=== PATIENT | male | born 1965 | race Caucasian/White ===

== ENCOUNTER 2021-03-23 14:46 | Inpatient (IN) ==
[2021-03-23] MEDS ORDERED: Acetaminophen 325 MG TABLET PO PRN (19:57)
[2021-03-23] MEDS ORDERED: Naloxone 0.4 MG/ML INJ IVP PRN (19:57)
[2021-03-23] MEDS ORDERED: Ondansetron 4 MG/2 ML VIAL IVP PRN (19:57)
[2021-03-23] MEDS ORDERED: *HR* HYDROcodone/Acet 5/325 mg TABLET PO PRN (19:57)
[2021-03-23] MEDS ORDERED: *HR* Promethazine 25 MG/ML VIAL IM PRN (19:57)
[2021-03-23] MEDS ORDERED: Melatonin 3 MG TABLET PO PRN (19:57)
[2021-03-23] MEDS ORDERED: Dextrose Gel 15 GM/37.5 ML TUBE PO PRN ×2 (20:00)
[2021-03-23] MEDS ORDERED: D5% in Water 1,000 ML IVC PRN (20:00)
[2021-03-23] MEDS ORDERED: *HR* Dextrose 50 % in Water (Syg) 50 ML SYRINGE IVP PRN (20:00)
[2021-03-23] MEDS ORDERED: Isovue-370 500 ML BOTTLE IVP ONE (20:39)
[2021-03-23] MEDS: Insulin LISPRO 300 UNITS/3 ML VIAL SUBQ SCH (23:06)
[2021-03-23] MEDS: *HR* OxyCODONE Immed Rel 5 MG TABLET PO PRN (23:29)
[2021-03-24] MEDS: Morphine Sulfate ER (12 HR) 60 MG TABLET.ER PO SCH ×4 (00:54→23:40)
[2021-03-24] MEDS: *HR* Labetalol 20 MG/4 ML SYRINGE IVP PRN ×2 (00:54→04:37)
[2021-03-24 02:47] LABS: Basophils % 0.1 %; Hematocrit 40.4 % (37.5-50.1); Hemoglobin 13.1 g/dL (12.9-16.9); Immature Granulocytes % 0.6 % (0-4); Lymphocytes % 14.1 %; Mean Corpuscular HGB Conc 32.4 g/dL (31.6-35.5); Mean Corpuscular Hemoglobin 26.9 pg (28.0-33.3); Mean Platelet Volume 11.2 fL (9.4-12.4); Monocytes # 0.5 K/mcL (0.0-1.3); Monocytes % 7.6 %; Neutrophils # 5.3 K/mcL (1.6-8.9); Platelet Count 184 K/mcL (140-400); Red Blood Count 4.87 M/mcL (4.19-5.50); Segmented Neutrophils % 77.6 %; White Blood Count 6.9 K/mcL (4.3-11.1)
[2021-03-24 02:56] LABS: INR 1.2; Prothrombin Time 13.9 Seconds (9.4-12.1)
[2021-03-24 02:57] LABS: Alanine Aminotransferase 17 Units/L (7-52); Albumin 3.8 g/dL (3.5-5.7); Albumin/Globulin Ratio 1.2 (1.1-2.2); Alkaline Phosphatase 62 Units/L (34-104); Aspartate Amino Transferase 14 Units/L (13-39); BUN/Creatinine Ratio 17 (6-26); Bilirubin,Total 0.5 mg/dL (0.3-1.0); Blood Urea Nitrogen 10 mg/dL (6-20); Calcium 8.4 mg/dL (8.6-10.3); Carbon Dioxide 15 mEq/L (23-29); Chloride 102 mEq/L (98-107); Globulin 3.1 g/dL (2.4-3.5); Glucose 228 mg/dL (70-105); Magnesium 1.7 mg/dL (1.6-2.6); Osmolality,Calculated 282 (280-300); Potassium 3.7 mEq/L (3.5-5.1); Sodium 133 mEq/L (136-145); Total Protein 6.9 g/dL (6.4-8.9); eGFR For African Americans > 60 (> 60); eGFR For Non-African Americans > 60 (> 60)
[2021-03-24] MEDS ORDERED: Remdesivir 200 MG in 0.9 % Sodium Chloride 100 ML IVPB ONE (03:00)
[2021-03-24 03:01] LABS: Albumin 3.7 g/dL (3.5-5.7); Albumin/Globulin Ratio 1.1 (1.1-2.2); Bilirubin,Direct 0.2 mg/dL (0.0-0.2); Bilirubin,Indirect 0.3 mg/dL (0.0-1.0); Bilirubin,Total 0.5 mg/dL (0.3-1.0); C-Reactive Protein 78 mg/L (Less than 10); Globulin 3.4 g/dL (2.4-3.5); Lactate Dehydrogenase 439 Units/L (140-271); Total Protein 7.1 g/dL (6.4-8.9)
[2021-03-24] MEDS: *HR* Enoxaparin 40 MG/0.4 ML SYRINGE SQ SCH (04:38)
[2021-03-24] MEDS: Furosemide 20 MG TABLET PO SCH (07:58)
[2021-03-24] MEDS: Dexamethasone Sodium Phos/PF 10 MG/ML VIAL IVP SCH (07:58)
[2021-03-24] MEDS: lisinopriL 20 MG TABLET PO SCH (07:58)
[2021-03-24] MEDS: Insulin LISPRO 300 UNITS/3 ML VIAL SUBQ SCH ×4 (07:58→20:40)
[2021-03-24] MEDS: methocarbamoL 500 MG TABLET PO SCH ×3 (07:58→20:58)
[2021-03-24] MEDS: carvediloL 6.25 MG TABLET PO SCH ×2 (10:30→18:06)
[2021-03-24] MEDS: *HR* OxyCODONE Immed Rel 5 MG TABLET PO PRN ×2 (11:57→18:06)
[2021-03-24 18:06] LABS: Ferritin 560 ng/mL (20-250)
[2021-03-25] MEDS: Remdesivir 100 MG in 0.9 % Sodium Chloride 100 ML IVPB SCH (01:29)
[2021-03-25 02:23] LABS: Hematocrit 36.9 % (37.5-50.1); Hemoglobin 12.5 g/dL (12.9-16.9); Mean Corpuscular HGB Conc 33.9 g/dL (31.6-35.5); Mean Corpuscular Hemoglobin 27.9 pg (28.0-33.3); Mean Corpuscular Volume 82.4 fL (83.0-100.0); Platelet Count 222 K/mcL (140-400); Red Blood Count 4.48 M/mcL (4.19-5.50); Red Cell Distribution Width 13.2 % (11.5-14.5); White Blood Count 7.8 K/mcL (4.3-11.1)
[2021-03-25 02:33] LABS: BUN/Creatinine Ratio 25 (6-26); Blood Urea Nitrogen 15 mg/dL (6-20); Calcium 8.3 mg/dL (8.6-10.3); Carbon Dioxide 22 mEq/L (23-29); Chloride 102 mEq/L (98-107); Glucose 133 mg/dL (70-105); Osmolality,Calculated 281 (280-300); Potassium 3.5 mEq/L (3.5-5.1); Sodium 134 mEq/L (136-145); eGFR For African Americans > 60 (> 60); eGFR For Non-African Americans > 60 (> 60)
[2021-03-25 02:35] LABS: Albumin 3.6 g/dL (3.5-5.7); Albumin/Globulin Ratio 1.1 (1.1-2.2); Bilirubin,Direct 0.1 mg/dL (0.0-0.2); Bilirubin,Indirect 0.4 mg/dL (0.0-1.0); Bilirubin,Total 0.5 mg/dL (0.3-1.0); Globulin 3.3 g/dL (2.4-3.5); Total Protein 6.9 g/dL (6.4-8.9)
[2021-03-25] MEDS: *HR* Enoxaparin 40 MG/0.4 ML SYRINGE SQ SCH (05:27)
[2021-03-25] MEDS: Insulin LISPRO 300 UNITS/3 ML VIAL SUBQ SCH ×4 (07:41→20:44)
[2021-03-25] MEDS: Dexamethasone Sodium Phos/PF 10 MG/ML VIAL IVP SCH (07:45)
[2021-03-25] MEDS: Morphine Sulfate ER (12 HR) 60 MG TABLET.ER PO SCH ×2 (07:45→16:21)
[2021-03-25] MEDS: carvediloL 6.25 MG TABLET PO SCH ×2 (07:45→16:21)
[2021-03-25] MEDS: lisinopriL 20 MG TABLET PO SCH (07:45)
[2021-03-25] MEDS: Furosemide 20 MG TABLET PO SCH (07:45)
[2021-03-25] MEDS: methocarbamoL 500 MG TABLET PO SCH ×3 (07:45→20:39)
[2021-03-25] MEDS: amLODIPine 5 MG TABLET PO SCH (08:27)
[2021-03-26] MEDS: Morphine Sulfate ER (12 HR) 60 MG TABLET.ER PO SCH ×3 (01:22→17:10)
[2021-03-26] MEDS: Remdesivir 100 MG in 0.9 % Sodium Chloride 100 ML IVPB SCH (01:23)
[2021-03-26 02:48] LABS: Hematocrit 38.7 % (37.5-50.1); Hemoglobin 12.5 g/dL (12.9-16.9); Mean Corpuscular HGB Conc 32.3 g/dL (31.6-35.5); Mean Corpuscular Hemoglobin 26.6 pg (28.0-33.3); Mean Corpuscular Volume 82.3 fL (83.0-100.0); Mean Platelet Volume 11.2 fL (9.4-12.4); Platelet Count 262 K/mcL (140-400); Red Cell Distribution Width 13.2 % (11.5-14.5)
[2021-03-26 03:14] LABS: BUN/Creatinine Ratio 35 (6-26); Blood Urea Nitrogen 21 mg/dL (6-20); Calcium 8.5 mg/dL (8.6-10.3); Carbon Dioxide 25 mEq/L (23-29); Chloride 102 mEq/L (98-107); Glucose 198 mg/dL (70-105); Osmolality,Calculated 289 (280-300); Potassium 3.6 mEq/L (3.5-5.1); Sodium 135 mEq/L (136-145); eGFR For African Americans > 60 (> 60); eGFR For Non-African Americans > 60 (> 60)
[2021-03-26 03:16] LABS: Albumin 3.4 g/dL (3.5-5.7); Bilirubin,Direct 0.1 mg/dL (0.0-0.2); Bilirubin,Indirect 0.4 mg/dL (0.0-1.0); Bilirubin,Total 0.5 mg/dL (0.3-1.0); Globulin 3.3 g/dL (2.4-3.5); Total Protein 6.7 g/dL (6.4-8.9)
[2021-03-26] MEDS: *HR* Enoxaparin 40 MG/0.4 ML SYRINGE SQ SCH (05:08)
[2021-03-26] MEDS: Insulin LISPRO 300 UNITS/3 ML VIAL SUBQ SCH ×4 (07:48→20:48)
[2021-03-26] MEDS: methocarbamoL 500 MG TABLET PO SCH ×3 (08:03→20:56)
[2021-03-26] MEDS: Furosemide 20 MG TABLET PO SCH (08:04)
[2021-03-26] MEDS: carvediloL 6.25 MG TABLET PO SCH ×2 (08:04→17:10)
[2021-03-26] MEDS: amLODIPine 5 MG TABLET PO SCH (08:04)
[2021-03-26] MEDS: lisinopriL 20 MG TABLET PO SCH (08:04)
[2021-03-26] MEDS: Dexamethasone Sodium Phos/PF 10 MG/ML VIAL IVP SCH (09:33)
[2021-03-27] MEDS: Morphine Sulfate ER (12 HR) 60 MG TABLET.ER PO SCH ×3 (00:20→16:42)
[2021-03-27] MEDS: Remdesivir 100 MG in 0.9 % Sodium Chloride 100 ML IVPB SCH (01:40)
[2021-03-27 03:41] LABS: Hematocrit 37.7 % (37.5-50.1); Hemoglobin 12.5 g/dL (12.9-16.9); Mean Corpuscular HGB Conc 33.2 g/dL (31.6-35.5); Mean Corpuscular Hemoglobin 27.5 pg (28.0-33.3); Mean Corpuscular Volume 82.9 fL (83.0-100.0); Mean Platelet Volume 11.3 fL (9.4-12.4); Platelet Count 287 K/mcL (140-400); Red Blood Count 4.55 M/mcL (4.19-5.50); Red Cell Distribution Width 13.3 % (11.5-14.5)
[2021-03-27 03:49] LABS: Albumin 3.2 g/dL (3.5-5.7); Albumin/Globulin Ratio 0.9 (1.1-2.2); Bilirubin,Direct 0.1 mg/dL (0.0-0.2); Bilirubin,Indirect 0.5 mg/dL (0.0-1.0); Bilirubin,Total 0.6 mg/dL (0.3-1.0); Globulin 3.5 g/dL (2.4-3.5); Total Protein 6.7 g/dL (6.4-8.9)
[2021-03-27 03:50] LABS: BUN/Creatinine Ratio 35 (6-26); Blood Urea Nitrogen 22 mg/dL (6-20); C-Reactive Protein 142 mg/L (Less than 10); Calcium 8.3 mg/dL (8.6-10.3); Carbon Dioxide 22 mEq/L (23-29); Chloride 103 mEq/L (98-107); Glucose 195 mg/dL (70-105); Lactate Dehydrogenase 433 Units/L (140-271); Osmolality,Calculated 291 (280-300); Potassium 3.5 mEq/L (3.5-5.1); Sodium 136 mEq/L (136-145); eGFR For African Americans > 60 (> 60); eGFR For Non-African Americans > 60 (> 60)
[2021-03-27 04:00] LABS: White Blood Count 14.4 K/mcL (4.3-11.1)
[2021-03-27 04:08] LABS: Ferritin 577 ng/mL (20-250)
[2021-03-27] MEDS: *HR* Enoxaparin 40 MG/0.4 ML SYRINGE SQ SCH (05:39)
[2021-03-27] MEDS: carvediloL 6.25 MG TABLET PO SCH ×2 (07:51→16:42)
[2021-03-27] MEDS: amLODIPine 5 MG TABLET PO SCH (07:51)
[2021-03-27] MEDS: methocarbamoL 500 MG TABLET PO SCH ×3 (07:51→20:34)
[2021-03-27] MEDS: Furosemide 20 MG TABLET PO SCH (07:51)
[2021-03-27] MEDS: lisinopriL 20 MG TABLET PO SCH (07:51)
[2021-03-27] MEDS: Insulin LISPRO 300 UNITS/3 ML VIAL SUBQ SCH ×4 (07:56→20:33)
[2021-03-27] MEDS: Dexamethasone Sodium Phos/PF 10 MG/ML VIAL IVP SCH (08:51)
[2021-03-27] MEDS: Piperacillin/Tazobactam 3.375 GM in 0.9 % Sodium Chloride Mini Bag 100 ML IVPB SCH ×2 (16:42→23:35)
[2021-03-27] MEDS: Morphine Sulfate ER (12 HR) 30 MG TABLET.ER PO SCH (23:38)
[2021-03-28] MEDS: Remdesivir 100 MG in 0.9 % Sodium Chloride 100 ML IVPB SCH (03:38)
[2021-03-28] MEDS: *HR* Enoxaparin 40 MG/0.4 ML SYRINGE SQ SCH (05:17)
[2021-03-28 05:52] LABS: Alanine Aminotransferase 13 Units/L (7-52); Albumin 3.1 g/dL (3.5-5.7); Albumin/Globulin Ratio 0.9 (1.1-2.2); Alkaline Phosphatase 58 Units/L (34-104); Aspartate Amino Transferase 9 Units/L (13-39); BUN/Creatinine Ratio 35 (6-26); Bilirubin,Direct 0.3 mg/dL (0.0-0.2); Bilirubin,Indirect 0.4 mg/dL (0.0-1.0); Bilirubin,Total 0.7 mg/dL (0.3-1.0); Blood Urea Nitrogen 24 mg/dL (6-20); Calcium 8.6 mg/dL (8.6-10.3); Carbon Dioxide 24 mEq/L (23-29); Chloride 103 mEq/L (98-107); Globulin 3.5 g/dL (2.4-3.5); Glucose 200 mg/dL (70-105); Lactate Dehydrogenase 375 Units/L (140-271); Osmolality,Calculated 296 (280-300); Potassium 3.6 mEq/L (3.5-5.1); Sodium 138 mEq/L (136-145); Total Protein 6.6 g/dL (6.4-8.9); eGFR For African Americans > 60 (> 60); eGFR For Non-African Americans > 60 (> 60)
[2021-03-28 06:04] LABS: Ferritin 761 ng/mL (20-250)
[2021-03-28] MEDS ORDERED: Isovue-370 500 ML BOTTLE IVP ONE (07:28)
[2021-03-28 08:28] LABS: C-Reactive Protein 191 mg/L (Less than 10)
[2021-03-28] MEDS: Furosemide 20 MG TABLET PO SCH (08:36)
[2021-03-28] MEDS: Insulin LISPRO 300 UNITS/3 ML VIAL SUBQ SCH ×4 (08:36→21:09)
[2021-03-28] MEDS: carvediloL 6.25 MG TABLET PO SCH ×2 (08:36→18:07)
[2021-03-28] MEDS: Morphine Sulfate ER (12 HR) 30 MG TABLET.ER PO SCH ×2 (08:36→14:47)
[2021-03-28] MEDS: lisinopriL 20 MG TABLET PO SCH (08:37)
[2021-03-28] MEDS: methocarbamoL 500 MG TABLET PO SCH ×3 (08:37→21:09)
[2021-03-28] MEDS: amLODIPine 5 MG TABLET PO SCH (08:37)
[2021-03-28] MEDS: Piperacillin/Tazobactam 3.375 GM in 0.9 % Sodium Chloride Mini Bag 100 ML IVPB SCH ×2 (08:37→14:48)
[2021-03-28] MEDS: Dexamethasone Sodium Phos/PF 10 MG/ML VIAL IVP SCH (08:37)
[2021-03-28 14:32] LABS: Basophils % 0.4 %; Hematocrit 37.7 % (37.5-50.1); Hemoglobin 12.7 g/dL (12.9-16.9); Immature Granulocytes % 0.9 % (0-4); Lymphocytes # 0.8 K/mcL (0.6-4.6); Lymphocytes % 8.5 %; Mean Corpuscular HGB Conc 33.7 g/dL (31.6-35.5); Mean Corpuscular Hemoglobin 27.7 pg (28.0-33.3); Mean Corpuscular Volume 82.1 fL (83.0-100.0); Mean Platelet Volume 11.3 fL (9.4-12.4); Monocytes # 0.2 K/mcL (0.0-1.3); Monocytes % 2.1 %; Neutrophils # 8.6 K/mcL (1.6-8.9); Platelet Count 299 K/mcL (140-400); Red Blood Count 4.59 M/mcL (4.19-5.50); Red Cell Distribution Width 13.5 % (11.5-14.5); Segmented Neutrophils % 88.1 %; White Blood Count 9.7 K/mcL (4.3-11.1)
[2021-03-28] MEDS: *HR* Enoxaparin 100 MG/ML SYRINGE SQ SCH (18:06)
[2021-03-29] MEDS ORDERED: *HR* LORazepam 2 MG/ML VIAL IVP ONE (00:02)
[2021-03-29] MEDS: Morphine Sulfate ER (12 HR) 30 MG TABLET.ER PO SCH ×4 (00:04→23:54)
[2021-03-29] MEDS: Ipratropium 1 PUFF INHALER IH SCH ×7 (00:06→23:12)
[2021-03-29] MEDS ORDERED: *HR* LORazepam 0.5 MG TABLET PO PRN (01:06)
[2021-03-29 04:28] LABS: ABG Base Excess 0 mEq/L (-2 to 3); ABG HCO3 24 mEq/L (21-27); ABG Oxygen Saturation 93 % (95-98); ABG PCO2 37 mmHg (35-45); ABG PH 7.43 pH Units (7.32-7.45); ABG PO2 65 mmHg (85-104); ABG TCO2 26 mEq/L (20-26)
[2021-03-29] MEDS: *HR* Enoxaparin 100 MG/ML SYRINGE SQ SCH (05:39)
[2021-03-29 05:50] LABS: Basophils # 0.1 K/mcL (0.0-0.2); Basophils % 0.9 %; Hematocrit 36.2 % (37.5-50.1); Hemoglobin 11.8 g/dL (12.9-16.9); Immature Granulocytes % 1.9 % (0-4); Lymphocytes # 1.3 K/mcL (0.6-4.6); Lymphocytes % 18.8 %; Mean Corpuscular HGB Conc 32.6 g/dL (31.6-35.5); Mean Corpuscular Hemoglobin 26.9 pg (28.0-33.3); Mean Corpuscular Volume 82.5 fL (83.0-100.0); Mean Platelet Volume 11.5 fL (9.4-12.4); Monocytes # 0.3 K/mcL (0.0-1.3); Monocytes % 4.6 %; Neutrophils # 5.2 K/mcL (1.6-8.9); Platelet Count 314 K/mcL (140-400); Red Blood Count 4.39 M/mcL (4.19-5.50); Red Cell Distribution Width 13.6 % (11.5-14.5); Segmented Neutrophils % 73.8 %
[2021-03-29 06:12] LABS: BUN/Creatinine Ratio 46 (6-26); Blood Urea Nitrogen 29 mg/dL (6-20); Calcium 8.5 mg/dL (8.6-10.3); Carbon Dioxide 25 mEq/L (23-29); Chloride 104 mEq/L (98-107); Glucose 252 mg/dL (70-105); Lactate Dehydrogenase 367 Units/L (140-271); Magnesium 2.2 mg/dL (1.6-2.6); Osmolality,Calculated 302 (280-300); Potassium 3.7 mEq/L (3.5-5.1); Sodium 139 mEq/L (136-145); eGFR For African Americans > 60 (> 60); eGFR For Non-African Americans > 60 (> 60)
[2021-03-29 06:19] LABS: Ferritin 561 ng/mL (20-250)
[2021-03-29] MEDS: Artificial Tears SOLN 15 ML BOTTLE BOTH EYES SCH ×4 (09:06→20:39)
[2021-03-29] MEDS: Dexmedetomidine HCl 400 MCG/100 ML MLS IVC SCH ×2 (09:06→22:25)
[2021-03-29] MEDS: carvediloL 6.25 MG TABLET PO SCH ×2 (09:07→19:00)
[2021-03-29] MEDS: Saliva Stimulant 44.3ml BOTTLE PO SCH ×4 (09:07→20:40)
[2021-03-29] MEDS: Dexamethasone Sodium Phos/PF 10 MG/ML VIAL IVP SCH (09:08)
[2021-03-29] MEDS: Saline Nasal Spray 44 ML BOTTLE NS SCH ×4 (09:08→20:40)
[2021-03-29] MEDS: amLODIPine 5 MG TABLET PO SCH (09:09)
[2021-03-29] MEDS: methocarbamoL 500 MG TABLET PO SCH ×3 (09:09→20:15)
[2021-03-29] MEDS: Furosemide 20 MG TABLET PO SCH (09:09)
[2021-03-29] MEDS: Insulin LISPRO 300 UNITS/3 ML VIAL SUBQ SCH ×4 (09:12→20:41)
[2021-03-29] MEDS ORDERED: Insulin DETEMIR 100 UNIT/ML X5UNITS SUBQ SCH (21:00)
[2021-03-30 02:56] LABS: Hematocrit 38.2 % (37.5-50.1); Hemoglobin 12.5 g/dL (12.9-16.9); Mean Corpuscular HGB Conc 32.7 g/dL (31.6-35.5); Mean Corpuscular Hemoglobin 27.1 pg (28.0-33.3); Mean Corpuscular Volume 82.9 fL (83.0-100.0); Mean Platelet Volume 11.2 fL (9.4-12.4); Platelet Count 336 K/mcL (140-400); Red Blood Count 4.61 M/mcL (4.19-5.50); Red Cell Distribution Width 13.8 % (11.5-14.5); White Blood Count 6.9 K/mcL (4.3-11.1)
[2021-03-30 03:17] LABS: BUN/Creatinine Ratio 49 (6-26); Blood Urea Nitrogen 31 mg/dL (6-20); Calcium 8.6 mg/dL (8.6-10.3); Carbon Dioxide 26 mEq/L (23-29); Chloride 103 mEq/L (98-107); Glucose 287 mg/dL (70-105); Osmolality,Calculated 301 (280-300); Potassium 3.8 mEq/L (3.5-5.1); Sodium 137 mEq/L (136-145); eGFR For African Americans > 60 (> 60); eGFR For Non-African Americans > 60 (> 60)
[2021-03-30] MEDS: Ipratropium 1 PUFF INHALER IH SCH ×6 (03:24→23:52)
[2021-03-30] MEDS: *HR* Enoxaparin 40 MG/0.4 ML SYRINGE SQ SCH (06:28)
[2021-03-30] MEDS: Insulin LISPRO 300 UNITS/3 ML VIAL SUBQ SCH ×4 (09:06→22:05)
[2021-03-30] MEDS: Saliva Stimulant 44.3ml BOTTLE PO SCH ×4 (09:07→22:04)
[2021-03-30] MEDS: Dexamethasone Sodium Phos/PF 10 MG/ML VIAL IVP SCH (09:07)
[2021-03-30] MEDS: Artificial Tears SOLN 15 ML BOTTLE BOTH EYES SCH ×4 (09:07→22:03)
[2021-03-30] MEDS: Saline Nasal Spray 44 ML BOTTLE NS SCH ×4 (09:07→22:04)
[2021-03-30] MEDS: amLODIPine 5 MG TABLET PO SCH (09:09)
[2021-03-30] MEDS: Furosemide 20 MG TABLET PO SCH (09:09)
[2021-03-30] MEDS: Morphine Sulfate ER (12 HR) 30 MG TABLET.ER PO SCH ×2 (09:09→17:39)
[2021-03-30] MEDS: carvediloL 6.25 MG TABLET PO SCH ×2 (09:10→17:39)
[2021-03-30] MEDS: methocarbamoL 500 MG TABLET PO SCH ×3 (09:10→22:05)
[2021-03-30] MEDS: Dexmedetomidine HCl 400 MCG/100 ML MLS IVC SCH (13:21)
[2021-03-30] MEDS: Insulin DETEMIR 100 UNIT/ML X5UNITS SUBQ SCH (22:04)
[2021-03-31] MEDS: Dexmedetomidine HCl 400 MCG/100 ML MLS IVC SCH ×2 (02:22→23:59)
[2021-03-31] MEDS: Morphine Sulfate ER (12 HR) 30 MG TABLET.ER PO SCH ×4 (02:23→23:56)
[2021-03-31] MEDS: Ipratropium 1 PUFF INHALER IH SCH ×6 (04:04→23:26)
[2021-03-31] MEDS: *HR* Enoxaparin 40 MG/0.4 ML SYRINGE SQ SCH (06:47)
[2021-03-31 07:42] LABS: Hematocrit 37.9 % (37.5-50.1); Hemoglobin 12.5 g/dL (12.9-16.9); Mean Corpuscular Hemoglobin 27.2 pg (28.0-33.3); Mean Corpuscular Volume 82.4 fL (83.0-100.0); Mean Platelet Volume 11.3 fL (9.4-12.4); Platelet Count 322 K/mcL (140-400); Red Cell Distribution Width 13.2 % (11.5-14.5); White Blood Count 7.7 K/mcL (4.3-11.1)
[2021-03-31 08:01] LABS: BUN/Creatinine Ratio 55 (6-26); Blood Urea Nitrogen 33 mg/dL (6-20); Calcium 8.3 mg/dL (8.6-10.3); Carbon Dioxide 28 mEq/L (23-29); Chloride 103 mEq/L (98-107); Glucose 245 mg/dL (70-105); Lactate Dehydrogenase 328 Units/L (140-271); Osmolality,Calculated 301 (280-300); Potassium 3.8 mEq/L (3.5-5.1); Sodium 138 mEq/L (136-145); eGFR For African Americans > 60 (> 60); eGFR For Non-African Americans > 60 (> 60)
[2021-03-31 08:15] LABS: Ferritin 779 ng/mL (20-250)
[2021-03-31] MEDS: Saline Nasal Spray 44 ML BOTTLE NS SCH ×4 (09:16→20:00)
[2021-03-31] MEDS: Artificial Tears SOLN 15 ML BOTTLE BOTH EYES SCH ×4 (09:16→20:00)
[2021-03-31] MEDS: Saliva Stimulant 44.3ml BOTTLE PO SCH ×4 (09:17→20:00)
[2021-03-31] MEDS: Insulin LISPRO 300 UNITS/3 ML VIAL SUBQ SCH ×4 (09:17→23:57)
[2021-03-31] MEDS: carvediloL 6.25 MG TABLET PO SCH ×2 (09:18→15:58)
[2021-03-31] MEDS: Furosemide 20 MG TABLET PO SCH (09:18)
[2021-03-31] MEDS: methocarbamoL 500 MG TABLET PO SCH ×3 (09:18→20:03)
[2021-03-31] MEDS: amLODIPine 5 MG TABLET PO SCH (09:19)
[2021-03-31] MEDS: Dexamethasone Sodium Phos/PF 10 MG/ML VIAL IVP SCH (09:19)
[2021-03-31] MEDS: Insulin DETEMIR 100 UNIT/ML X5UNITS SUBQ SCH (20:01)
[2021-04-01] MEDS: Ipratropium 1 PUFF INHALER IH SCH ×6 (03:48→23:59)
[2021-04-01] MEDS: *HR* Enoxaparin 40 MG/0.4 ML SYRINGE SQ SCH (05:20)
[2021-04-01] MEDS: Furosemide 40 MG/4 ML VIAL IVP SCH ×2 (08:37→21:09)
[2021-04-01] MEDS: methocarbamoL 500 MG TABLET PO SCH ×3 (08:37→21:17)
[2021-04-01] MEDS: amLODIPine 5 MG TABLET PO SCH (08:37)
[2021-04-01] MEDS: carvediloL 6.25 MG TABLET PO SCH ×2 (08:37→16:16)
[2021-04-01] MEDS: Dexamethasone Sodium Phos/PF 10 MG/ML VIAL IVP SCH (08:38)
[2021-04-01] MEDS: Saline Nasal Spray 44 ML BOTTLE NS SCH ×3 (08:39→18:43)
[2021-04-01] MEDS: Morphine Sulfate ER (12 HR) 30 MG TABLET.ER PO SCH ×2 (08:39→16:15)
[2021-04-01] MEDS: Insulin LISPRO 300 UNITS/3 ML VIAL SUBQ SCH ×3 (08:40→16:22)
[2021-04-01] MEDS: Saliva Stimulant 44.3ml BOTTLE PO SCH ×4 (08:40→21:17)
[2021-04-01] MEDS: Artificial Tears SOLN 15 ML BOTTLE BOTH EYES SCH ×4 (08:40→21:15)
[2021-04-01 11:49] LABS: Hematocrit 42.3 % (37.5-50.1); Hemoglobin 13.8 g/dL (12.9-16.9); Mean Corpuscular HGB Conc 32.6 g/dL (31.6-35.5); Mean Corpuscular Hemoglobin 26.7 pg (28.0-33.3); Mean Corpuscular Volume 81.8 fL (83.0-100.0); Mean Platelet Volume 11.1 fL (9.4-12.4); Platelet Count 274 K/mcL (140-400); Red Blood Count 5.17 M/mcL (4.19-5.50); Red Cell Distribution Width 13.1 % (11.5-14.5)
[2021-04-01 12:02] LABS: BUN/Creatinine Ratio 48 (6-26); Blood Urea Nitrogen 31 mg/dL (6-20); Calcium 8.6 mg/dL (8.6-10.3); Carbon Dioxide 31 mEq/L (23-29); Chloride 100 mEq/L (98-107); Glucose 209 mg/dL (70-105); Osmolality,Calculated 295 (280-300); Potassium 3.9 mEq/L (3.5-5.1); Sodium 136 mEq/L (136-145); eGFR For African Americans > 60 (> 60); eGFR For Non-African Americans > 60 (> 60)
[2021-04-01 12:07] LABS: White Blood Count 12.8 K/mcL (4.3-11.1)
[2021-04-01] MEDS: Dexmedetomidine HCl 400 MCG/100 ML MLS IVC SCH (16:17)
[2021-04-01] MEDS: Insulin DETEMIR 100 UNIT/ML X5UNITS SUBQ SCH (21:28)
[2021-04-02] MEDS: Insulin LISPRO 300 UNITS/3 ML VIAL SUBQ SCH ×5 (02:41→19:36)
[2021-04-02] MEDS: Saline Nasal Spray 44 ML BOTTLE NS SCH ×5 (02:43→19:29)
[2021-04-02] MEDS: Morphine Sulfate ER (12 HR) 30 MG TABLET.ER PO SCH ×3 (03:04→19:28)
[2021-04-02] MEDS: Ipratropium 1 PUFF INHALER IH SCH ×5 (03:53→20:51)
[2021-04-02] MEDS: *HR* Enoxaparin 40 MG/0.4 ML SYRINGE SQ SCH (05:18)
[2021-04-02] MEDS: amLODIPine 5 MG TABLET PO SCH (08:50)
[2021-04-02] MEDS: Dexmedetomidine HCl 400 MCG/100 ML MLS IVC SCH ×2 (08:50→19:30)
[2021-04-02] MEDS: methocarbamoL 500 MG TABLET PO SCH ×3 (08:50→19:28)
[2021-04-02] MEDS: Saliva Stimulant 44.3ml BOTTLE PO SCH ×4 (08:51→19:28)
[2021-04-02] MEDS: Artificial Tears SOLN 15 ML BOTTLE BOTH EYES SCH ×4 (08:51→19:28)
[2021-04-02] MEDS: carvediloL 6.25 MG TABLET PO SCH ×2 (08:52→15:10)
[2021-04-02] MEDS: Furosemide 40 MG/4 ML VIAL IVP SCH ×2 (08:53→19:29)
[2021-04-02 09:28] LABS: Basophils % 0.3 %; Hematocrit 42.9 % (37.5-50.1); Hemoglobin 13.9 g/dL (12.9-16.9); Immature Granulocytes % 1.6 % (0-4); Lymphocytes % 15.9 %; Mean Corpuscular HGB Conc 32.4 g/dL (31.6-35.5); Mean Corpuscular Hemoglobin 26.4 pg (28.0-33.3); Mean Corpuscular Volume 81.4 fL (83.0-100.0); Mean Platelet Volume 11.7 fL (9.4-12.4); Monocytes # 1.2 K/mcL (0.0-1.3); Monocytes % 9.7 %; Neutrophils # 8.9 K/mcL (1.6-8.9); Platelet Count 254 K/mcL (140-400); Red Blood Count 5.27 M/mcL (4.19-5.50); Red Cell Distribution Width 13.1 % (11.5-14.5); Segmented Neutrophils % 72.5 %; White Blood Count 12.3 K/mcL (4.3-11.1)
[2021-04-02 09:48] LABS: Alanine Aminotransferase 6 Units/L (7-52); Albumin 3.2 g/dL (3.5-5.7); Albumin/Globulin Ratio 0.9 (1.1-2.2); Alkaline Phosphatase 50 Units/L (34-104); Aspartate Amino Transferase 6 Units/L (13-39); BUN/Creatinine Ratio 48 (6-26); Bilirubin,Total 0.8 mg/dL (0.3-1.0); Blood Urea Nitrogen 32 mg/dL (6-20); Calcium 8.8 mg/dL (8.6-10.3); Carbon Dioxide 29 mEq/L (23-29); Chloride 99 mEq/L (98-107); Globulin 3.5 g/dL (2.4-3.5); Glucose 183 mg/dL (70-105); Osmolality,Calculated 294 (280-300); Potassium 3.7 mEq/L (3.5-5.1); Sodium 136 mEq/L (136-145); Total Protein 6.7 g/dL (6.4-8.9); eGFR For African Americans > 60 (> 60); eGFR For Non-African Americans > 60 (> 60)
[2021-04-02] MEDS: Insulin DETEMIR 100 UNIT/ML X5UNITS SUBQ SCH (19:37)
[2021-04-03] MEDS: Ipratropium 1 PUFF INHALER IH SCH ×7 (00:30→23:57)
[2021-04-03] MEDS: Morphine Sulfate ER (12 HR) 30 MG TABLET.ER PO SCH ×3 (04:39→20:36)
[2021-04-03 05:21] LABS: Hemoglobin 14.6 g/dL (12.9-16.9); Mean Corpuscular HGB Conc 33.2 g/dL (31.6-35.5); Mean Corpuscular Hemoglobin 27.1 pg (28.0-33.3); Mean Corpuscular Volume 81.8 fL (83.0-100.0); Mean Platelet Volume 11.9 fL (9.4-12.4); Platelet Count 261 K/mcL (140-400); Red Blood Count 5.38 M/mcL (4.19-5.50); White Blood Count 11.2 K/mcL (4.3-11.1)
[2021-04-03 05:43] LABS: BUN/Creatinine Ratio 51 (6-26); Blood Urea Nitrogen 35 mg/dL (6-20); C-Reactive Protein < 5 mg/L (Less than 10); Calcium 8.6 mg/dL (8.6-10.3); Carbon Dioxide 27 mEq/L (23-29); Chloride 97 mEq/L (98-107); Glucose 173 mg/dL (70-105); Osmolality,Calculated 296 (280-300); Potassium 3.7 mEq/L (3.5-5.1); Sodium 137 mEq/L (136-145); eGFR For African Americans > 60 (> 60); eGFR For Non-African Americans > 60 (> 60)
[2021-04-03] MEDS: Dexmedetomidine HCl 400 MCG/100 ML MLS IVC SCH (05:49)
[2021-04-03] MEDS: *HR* Enoxaparin 40 MG/0.4 ML SYRINGE SQ SCH (05:50)
[2021-04-03] MEDS: carvediloL 6.25 MG TABLET PO SCH ×2 (09:07→17:15)
[2021-04-03] MEDS: methocarbamoL 500 MG TABLET PO SCH ×3 (09:16→20:36)
[2021-04-03] MEDS: amLODIPine 5 MG TABLET PO SCH (09:17)
[2021-04-03] MEDS: Saliva Stimulant 44.3ml BOTTLE PO SCH ×4 (09:17→20:36)
[2021-04-03] MEDS: Furosemide 40 MG/4 ML VIAL IVP SCH (09:17)
[2021-04-03] MEDS: Saline Nasal Spray 44 ML BOTTLE NS SCH ×4 (09:17→20:36)
[2021-04-03] MEDS: Insulin LISPRO 300 UNITS/3 ML VIAL SUBQ SCH ×4 (09:17→20:36)
[2021-04-03] MEDS: Artificial Tears SOLN 15 ML BOTTLE BOTH EYES SCH ×4 (09:17→20:36)
[2021-04-03] MEDS: Insulin DETEMIR 100 UNIT/ML X5UNITS SUBQ SCH (17:15)
[2021-04-04] MEDS: Morphine Sulfate ER (12 HR) 30 MG TABLET.ER PO SCH ×3 (03:22→20:27)
[2021-04-04] MEDS: Ipratropium 1 PUFF INHALER IH SCH ×5 (04:08→20:25)
[2021-04-04] MEDS: *HR* Enoxaparin 40 MG/0.4 ML SYRINGE SQ SCH (06:26)
[2021-04-04 06:40] LABS: BUN/Creatinine Ratio 39 (6-26); Blood Urea Nitrogen 27 mg/dL (6-20); Calcium 8.7 mg/dL (8.6-10.3); Carbon Dioxide 29 mEq/L (23-29); Chloride 100 mEq/L (98-107); Glucose 141 mg/dL (70-105); Osmolality,Calculated 289 (280-300); Potassium 3.9 mEq/L (3.5-5.1); Sodium 136 mEq/L (136-145); eGFR For African Americans > 60 (> 60); eGFR For Non-African Americans > 60 (> 60)
[2021-04-04] MEDS: Insulin LISPRO 300 UNITS/3 ML VIAL SUBQ SCH ×4 (07:40→20:31)
[2021-04-04] MEDS: Artificial Tears SOLN 15 ML BOTTLE BOTH EYES SCH ×4 (07:43→20:30)
[2021-04-04] MEDS: amLODIPine 5 MG TABLET PO SCH (07:44)
[2021-04-04] MEDS: Saliva Stimulant 44.3ml BOTTLE PO SCH ×4 (07:44→20:30)
[2021-04-04] MEDS: methocarbamoL 500 MG TABLET PO SCH ×3 (07:45→20:27)
[2021-04-04] MEDS: Furosemide 20 MG TABLET PO SCH (07:45)
[2021-04-04] MEDS: Saline Nasal Spray 44 ML BOTTLE NS SCH ×4 (07:45→20:30)
[2021-04-04] MEDS: carvediloL 6.25 MG TABLET PO SCH ×2 (07:46→16:29)
[2021-04-04] MEDS: Insulin DETEMIR 100 UNIT/ML X5UNITS SUBQ SCH (07:47)
[2021-04-05] MEDS: Ipratropium 1 PUFF INHALER IH SCH ×7 (00:09→23:52)
[2021-04-05] MEDS: Morphine Sulfate ER (12 HR) 30 MG TABLET.ER PO SCH ×3 (03:55→19:38)
[2021-04-05] MEDS: *HR* Enoxaparin 40 MG/0.4 ML SYRINGE SQ SCH (05:31)
[2021-04-05] MEDS: Insulin LISPRO 300 UNITS/3 ML VIAL SUBQ SCH ×4 (07:55→19:39)
[2021-04-05] MEDS: Saliva Stimulant 44.3ml BOTTLE PO SCH ×4 (08:55→19:39)
[2021-04-05] MEDS: methocarbamoL 500 MG TABLET PO SCH ×3 (08:55→19:38)
[2021-04-05] MEDS: Artificial Tears SOLN 15 ML BOTTLE BOTH EYES SCH ×4 (08:55→19:38)
[2021-04-05] MEDS: carvediloL 6.25 MG TABLET PO SCH ×2 (08:55→16:49)
[2021-04-05] MEDS: amLODIPine 5 MG TABLET PO SCH (08:55)
[2021-04-05] MEDS: Furosemide 20 MG TABLET PO SCH (08:55)
[2021-04-05] MEDS: Saline Nasal Spray 44 ML BOTTLE NS SCH ×4 (08:55→19:39)
[2021-04-05] MEDS: Insulin DETEMIR 100 UNIT/ML X5UNITS SUBQ SCH (08:57)
[2021-04-05 16:42] LABS: Hematocrit 43.3 % (37.5-50.1); Hemoglobin 13.7 g/dL (12.9-16.9); Mean Corpuscular HGB Conc 31.6 g/dL (31.6-35.5); Mean Corpuscular Volume 85.4 fL (83.0-100.0); Mean Platelet Volume 12.8 fL (9.4-12.4); Platelet Count 204 K/mcL (140-400); Red Blood Count 5.07 M/mcL (4.19-5.50); Red Cell Distribution Width 13.2 % (11.5-14.5); White Blood Count 15.7 K/mcL (4.3-11.1)
[2021-04-05 17:37] LABS: Alanine Aminotransferase 7 Units/L (7-52); Albumin 3.2 g/dL (3.5-5.7); Alkaline Phosphatase 52 Units/L (34-104); Aspartate Amino Transferase 10 Units/L (13-39); BUN/Creatinine Ratio 57 (6-26); Bilirubin,Total 0.5 mg/dL (0.3-1.0); Blood Urea Nitrogen 34 mg/dL (6-20); Calcium 8.5 mg/dL (8.6-10.3); Carbon Dioxide 25 mEq/L (23-29); Chloride 100 mEq/L (98-107); Globulin 3.3 g/dL (2.4-3.5); Glucose 233 mg/dL (70-105); Osmolality,Calculated 285 (280-300); Potassium 4.4 mEq/L (3.5-5.1); Sodium 130 mEq/L (136-145); Total Protein 6.5 g/dL (6.4-8.9); eGFR For African Americans > 60 (> 60); eGFR For Non-African Americans > 60 (> 60)
[2021-04-06] MEDS: Morphine Sulfate ER (12 HR) 30 MG TABLET.ER PO SCH ×3 (03:04→19:35)
[2021-04-06] MEDS: Ipratropium 1 PUFF INHALER IH SCH ×6 (03:56→23:56)
[2021-04-06] MEDS: *HR* Enoxaparin 40 MG/0.4 ML SYRINGE SQ SCH (05:36)
[2021-04-06 06:24] LABS: Hematocrit 41.1 % (37.5-50.1); Hemoglobin 13.1 g/dL (12.9-16.9); Mean Corpuscular HGB Conc 31.9 g/dL (31.6-35.5); Mean Corpuscular Hemoglobin 26.6 pg (28.0-33.3); Mean Corpuscular Volume 83.5 fL (83.0-100.0); Platelet Count 182 K/mcL (140-400); Red Blood Count 4.92 M/mcL (4.19-5.50); White Blood Count 11.8 K/mcL (4.3-11.1)
[2021-04-06 08:20] LABS: Alanine Aminotransferase 8 Units/L (7-52); Albumin 3.3 g/dL (3.5-5.7); Albumin/Globulin Ratio 1.1 (1.1-2.2); Alkaline Phosphatase 49 Units/L (34-104); Aspartate Amino Transferase 6 Units/L (13-39); BUN/Creatinine Ratio 55 (6-26); Bilirubin,Total 0.7 mg/dL (0.3-1.0); Blood Urea Nitrogen 33 mg/dL (6-20); Calcium 8.6 mg/dL (8.6-10.3); Carbon Dioxide 29 mEq/L (23-29); Chloride 100 mEq/L (98-107); Globulin 3.1 g/dL (2.4-3.5); Glucose 285 mg/dL (70-105); Osmolality,Calculated 294 (280-300); Potassium 4.4 mEq/L (3.5-5.1); Sodium 133 mEq/L (136-145); Total Protein 6.4 g/dL (6.4-8.9); eGFR For African Americans > 60 (> 60); eGFR For Non-African Americans > 60 (> 60)
[2021-04-06] MEDS: Saliva Stimulant 44.3ml BOTTLE PO SCH ×4 (08:31→19:36)
[2021-04-06] MEDS: Artificial Tears SOLN 15 ML BOTTLE BOTH EYES SCH ×4 (08:31→19:36)
[2021-04-06] MEDS: Insulin LISPRO 300 UNITS/3 ML VIAL SUBQ SCH ×4 (08:31→20:59)
[2021-04-06] MEDS: Saline Nasal Spray 44 ML BOTTLE NS SCH ×4 (08:31→19:36)
[2021-04-06] MEDS: carvediloL 6.25 MG TABLET PO SCH ×3 (08:32→17:12)
[2021-04-06] MEDS: Insulin DETEMIR 100 UNIT/ML X5UNITS SUBQ SCH (08:32)
[2021-04-06] MEDS: amLODIPine 5 MG TABLET PO SCH (08:32)
[2021-04-06] MEDS: Furosemide 20 MG TABLET PO SCH (08:32)
[2021-04-06] MEDS: methocarbamoL 500 MG TABLET PO SCH ×3 (08:33→20:59)
[2021-04-06] MEDS: lisinopriL 10 MG TABLET PO SCH (11:27)
[2021-04-06] MEDS ORDERED: Insulin DETEMIR 100 UNIT/ML X5UNITS SUBQ SCH (21:00)
[2021-04-07] MEDS: Morphine Sulfate ER (12 HR) 30 MG TABLET.ER PO SCH ×3 (02:37→19:40)
[2021-04-07] MEDS: Ipratropium 1 PUFF INHALER IH SCH ×5 (03:44→20:21)
[2021-04-07 04:40] LABS: Basophils % 0.2 %; Eosinophils % 0.2 %; Hematocrit 41.1 % (37.5-50.1); Immature Granulocytes % 1.1 % (0-4); Lymphocytes # 3.5 K/mcL (0.6-4.6); Lymphocytes % 14.9 %; Mean Corpuscular HGB Conc 31.6 g/dL (31.6-35.5); Mean Corpuscular Hemoglobin 26.8 pg (28.0-33.3); Mean Corpuscular Volume 84.7 fL (83.0-100.0); Mean Platelet Volume 12.3 fL (9.4-12.4); Monocytes % 8.7 %; Neutrophils # 17.6 K/mcL (1.6-8.9); Platelet Count 230 K/mcL (140-400); Red Blood Count 4.85 M/mcL (4.19-5.50); Segmented Neutrophils % 74.9 %
[2021-04-07 04:49] LABS: Basophils # 0.1 K/mcL (0.0-0.2); Eosinophils # 0.1 K/mcL (0.0-0.6); White Blood Count 23.5 K/mcL (4.3-11.1)
[2021-04-07] MEDS: *HR* Enoxaparin 40 MG/0.4 ML SYRINGE SQ SCH (05:55)
[2021-04-07] MEDS: Insulin LISPRO 300 UNITS/3 ML VIAL SUBQ SCH ×4 (08:51→19:44)
[2021-04-07] MEDS: carvediloL 6.25 MG TABLET PO SCH ×2 (08:53→16:57)
[2021-04-07] MEDS: lisinopriL 10 MG TABLET PO SCH (08:53)
[2021-04-07] MEDS: methocarbamoL 500 MG TABLET PO SCH ×3 (08:53→19:44)
[2021-04-07] MEDS: Furosemide 20 MG TABLET PO SCH (08:53)
[2021-04-07] MEDS: Saliva Stimulant 44.3ml BOTTLE PO SCH ×4 (08:53→19:40)
[2021-04-07] MEDS: Saline Nasal Spray 44 ML BOTTLE NS SCH ×4 (08:53→19:40)
[2021-04-07] MEDS: Artificial Tears SOLN 15 ML BOTTLE BOTH EYES SCH ×4 (08:53→19:40)
[2021-04-07] MEDS: amLODIPine 5 MG TABLET PO SCH (08:53)
[2021-04-07] MEDS: Insulin DETEMIR 100 UNIT/ML X5UNITS SUBQ SCH (19:44)
[2021-04-08] MEDS: Ipratropium 1 PUFF INHALER IH SCH ×7 (00:12→23:45)
[2021-04-08] MEDS: Morphine Sulfate ER (12 HR) 30 MG TABLET.ER PO SCH ×3 (03:00→19:54)
[2021-04-08] MEDS: *HR* Enoxaparin 40 MG/0.4 ML SYRINGE SQ SCH (05:40)
[2021-04-08] MEDS: Insulin LISPRO 300 UNITS/3 ML VIAL SUBQ SCH ×4 (08:11→19:54)
[2021-04-08] MEDS: amLODIPine 5 MG TABLET PO SCH (08:25)
[2021-04-08] MEDS: Furosemide 20 MG TABLET PO SCH (08:25)
[2021-04-08] MEDS: lisinopriL 10 MG TABLET PO SCH (08:25)
[2021-04-08] MEDS: methocarbamoL 500 MG TABLET PO SCH ×3 (08:25→19:54)
[2021-04-08] MEDS: carvediloL 6.25 MG TABLET PO SCH ×2 (08:25→17:36)
[2021-04-08] MEDS: Saline Nasal Spray 44 ML BOTTLE NS SCH ×4 (08:28→22:09)
[2021-04-08] MEDS: Artificial Tears SOLN 15 ML BOTTLE BOTH EYES SCH ×4 (08:28→19:54)
[2021-04-08] MEDS: Saliva Stimulant 44.3ml BOTTLE PO SCH ×4 (08:28→19:54)
[2021-04-08] MEDS: Insulin DETEMIR 100 UNIT/ML X5UNITS SUBQ SCH (19:55)
[2021-04-09] MEDS: Ipratropium 1 PUFF INHALER IH SCH ×6 (04:12→23:39)
[2021-04-09] MEDS: Morphine Sulfate ER (12 HR) 30 MG TABLET.ER PO SCH ×3 (04:18→19:23)
[2021-04-09] MEDS: *HR* Enoxaparin 40 MG/0.4 ML SYRINGE SQ SCH (05:36)
[2021-04-09] MEDS: Insulin LISPRO 300 UNITS/3 ML VIAL SUBQ SCH ×4 (09:06→21:29)
[2021-04-09] MEDS: Artificial Tears SOLN 15 ML BOTTLE BOTH EYES SCH ×4 (09:18→19:23)
[2021-04-09] MEDS: amLODIPine 5 MG TABLET PO SCH (09:18)
[2021-04-09] MEDS: methocarbamoL 500 MG TABLET PO SCH ×3 (09:18→20:11)
[2021-04-09] MEDS: Furosemide 20 MG TABLET PO SCH (09:18)
[2021-04-09] MEDS: carvediloL 6.25 MG TABLET PO SCH ×2 (09:18→16:10)
[2021-04-09] MEDS: lisinopriL 10 MG TABLET PO SCH (09:18)
[2021-04-09] MEDS: Saline Nasal Spray 44 ML BOTTLE NS SCH ×4 (09:19→19:25)
[2021-04-09] MEDS: Saliva Stimulant 44.3ml BOTTLE PO SCH ×4 (09:19→19:24)
[2021-04-09] MEDS: Insulin DETEMIR 100 UNIT/ML X5UNITS SUBQ SCH (21:32)
[2021-04-10] MEDS: Morphine Sulfate ER (12 HR) 30 MG TABLET.ER PO SCH ×3 (03:26→21:12)
[2021-04-10] MEDS: Ipratropium 1 PUFF INHALER IH SCH ×6 (03:44→23:30)
[2021-04-10] MEDS: *HR* Enoxaparin 40 MG/0.4 ML SYRINGE SQ SCH (05:21)
[2021-04-10] MEDS: Saliva Stimulant 44.3ml BOTTLE PO SCH ×4 (09:50→21:14)
[2021-04-10] MEDS: lisinopriL 10 MG TABLET PO SCH (09:50)
[2021-04-10] MEDS: Saline Nasal Spray 44 ML BOTTLE NS SCH ×4 (09:50→21:13)
[2021-04-10] MEDS: amLODIPine 5 MG TABLET PO SCH (09:50)
[2021-04-10] MEDS: Furosemide 20 MG TABLET PO SCH (09:50)
[2021-04-10] MEDS: Artificial Tears SOLN 15 ML BOTTLE BOTH EYES SCH ×4 (09:50→21:14)
[2021-04-10] MEDS: methocarbamoL 500 MG TABLET PO SCH ×3 (09:50→21:12)
[2021-04-10] MEDS: Insulin LISPRO 300 UNITS/3 ML VIAL SUBQ SCH ×4 (09:51→21:18)
[2021-04-10] MEDS: carvediloL 6.25 MG TABLET PO SCH ×2 (09:53→17:26)
[2021-04-10] MEDS: Insulin DETEMIR 100 UNIT/ML X5UNITS SUBQ SCH (21:17)
[2021-04-11] MEDS: Ipratropium 1 PUFF INHALER IH SCH ×4 (04:14→15:43)
[2021-04-11] MEDS: *HR* Enoxaparin 40 MG/0.4 ML SYRINGE SQ SCH (04:33)
[2021-04-11] MEDS: Morphine Sulfate ER (12 HR) 30 MG TABLET.ER PO SCH ×2 (04:33→11:29)
[2021-04-11] MEDS: Saline Nasal Spray 44 ML BOTTLE NS SCH ×3 (07:40→16:25)
[2021-04-11] MEDS: Artificial Tears SOLN 15 ML BOTTLE BOTH EYES SCH ×3 (07:40→16:25)
[2021-04-11] MEDS: Saliva Stimulant 44.3ml BOTTLE PO SCH ×3 (07:40→16:25)
[2021-04-11] MEDS: amLODIPine 5 MG TABLET PO SCH (07:41)
[2021-04-11] MEDS: Furosemide 20 MG TABLET PO SCH (07:42)
[2021-04-11] MEDS: carvediloL 6.25 MG TABLET PO SCH ×2 (07:42→16:25)
[2021-04-11] MEDS: lisinopriL 10 MG TABLET PO SCH (07:42)
[2021-04-11] MEDS: Insulin LISPRO 300 UNITS/3 ML VIAL SUBQ SCH ×3 (07:46→16:50)
[2021-04-11] MEDS: methocarbamoL 500 MG TABLET PO SCH ×2 (11:23→16:25)
[2021-04-11 16:48] VITALS: BP 148/56; PULSE 72; TEMP 97.6; O2SAT 92
== END 2021-04-11 18:25 | DRG 177 ==
LOC: 3BNU → SUATTDRO 19:25 → 2NENU 03-27 22:24
PROVIDERS: ADMIT Hospitalist; ATTEND Internal Medicine